=== PATIENT | male | born 1980 | race Caucasian/White ===

== ENCOUNTER 2018-04-02 12:16 | Emergency (ER) | payer MEDICAID ==
[~2018-04-02] VITALS: Ht 188 cm; Wt 78.0 kg
[~2018-04-02 12:16] MED LIST: GABA-532 PO; TRAM50TA2 PO
[2018-04-02] MEDS ORDERED: HYDR-565 PO (13:54)
[2018-04-02] MEDS ORDERED: CYCL-1 PO (13:54)
[2018-04-02] MEDS ORDERED: NAPR-56 PO (13:54)
[2018-04-02] MEDS ORDERED: ketorolac trometh inj. 60 MG/2 ML VIAL IM ONE (13:55)
[2018-04-02] MEDS ORDERED: cyclobenzaprine 10mg tablet PO ONE (13:55)
[2018-04-02] MEDS ORDERED: HYDROmorphone 2mg tablet PO ONE (13:55)
[2018-04-02 14:24] VITALS: BP 144/99
== END 2018-04-02 14:27 | disposition home or self-care (01) ==
LOC: ER 12:16
DX: S70.01XA Contusion of right hip, initial encounter (principal); M54.9 Dorsalgia, unspecified; G89.29 Other chronic pain; F12.90 Cannabis use, unspecified, uncomplicated; F15.90 Other stimulant use, unspecified, uncomplicated; Z56.0 Unemployment, unspecified; V00.131A Fall from skateboard, initial encounter; Y93.51 Activity, roller skating (inline) and skateboarding; Y92.89 Other specified places as the place of occurrence of the external cause; Y99.8 Other external cause status
CPT/HCPCS: 72100; 72170; 96372; 99284; J1885

== ENCOUNTER 2019-08-22 00:23 | Emergency (ER) | payer MEDICAID ==
[~2019-08-22] VITALS: Ht 182.9 cm; Wt 88.0 kg
[~2019-08-22 00:23] MED LIST changes: +CYCL-1 PO
[2019-08-22 00:41] VITALS: BP 136/98
[2019-08-22] MEDS ORDERED: ketorolac trometh inj. 60 MG/2 ML VIAL IM ONE (02:10)
== END 2019-08-22 02:28 | disposition home or self-care (01) ==
LOC: ER 00:24
DX: M54.5 Low back pain (principal); F15.10 Other stimulant abuse, uncomplicated; G89.29 Other chronic pain; F12.90 Cannabis use, unspecified, uncomplicated; Z56.0 Unemployment, unspecified; Z88.6 Allergy status to analgesic agent
CPT/HCPCS: 96372; 99283; J1885

== ENCOUNTER 2020-01-19 21:31 | Emergency (ER) | payer MEDICAID, OTHER ==
[~2020-01-19] VITALS: Ht 188 cm; Wt 70.5 kg
[2020-01-19 21:46] VITALS: BP 126/78
[2020-01-19] MEDS ORDERED: meclizine 12.5mg tablet PO ONE (22:15)
== END 2020-01-19 22:37 | disposition home or self-care (01) ==
LOC: ER 21:32
DX: H72.91 Unspecified perforation of tympanic membrane, right ear (principal); R42 Dizziness and giddiness; G89.29 Other chronic pain; F12.90 Cannabis use, unspecified, uncomplicated; F15.90 Other stimulant use, unspecified, uncomplicated; Z56.0 Unemployment, unspecified; Z88.6 Allergy status to analgesic agent
CPT/HCPCS: 99282; J8597

== ENCOUNTER 2020-03-03 19:33 | Emergency (ER) | payer MEDICAID ==
[~2020-03-03] VITALS: Ht 188 cm; Wt 72.7 kg
[2020-03-03 22:19] VITALS: BP 115/80
== END 2020-03-03 22:21 | disposition home or self-care (01) ==
LOC: ER 19:33
DX: S50.02XA Contusion of left elbow, initial encounter (principal); F10.929 Alcohol use, unspecified with intoxication, unspecified; G89.29 Other chronic pain; F17.200 Nicotine dependence, unspecified, uncomplicated; F12.90 Cannabis use, unspecified, uncomplicated; F15.90 Other stimulant use, unspecified, uncomplicated; Z56.0 Unemployment, unspecified; Z88.6 Allergy status to analgesic agent; Z79.899 Other long term (current) drug therapy; Y04.0XXA Assault by unarmed brawl or fight, initial encounter; Y93.89 Activity, other specified; Y92.89 Other specified places as the place of occurrence of the external cause; Y99.9 Unspecified external cause status; Y90.9 Presence of alcohol in blood, level not specified
CPT/HCPCS: 70450; 70486; 73080; 93005; 99285

== ENCOUNTER 2020-07-11 18:25 | Emergency (ER) | payer MEDICAID ==
[~2020-07-11] VITALS: Ht 188 cm; Wt 72.8 kg
[2020-07-11 18:29] VITALS: BP 101/70
[2020-07-11] MEDS ORDERED: PRED10TA23 PO (18:40)
[2020-07-11] MEDS ORDERED: TRAM50TA2 PO (18:40)
== END 2020-07-11 18:47 | disposition home or self-care (01) ==
LOC: ER 18:26
DX: H92.01 Otalgia, right ear (principal); R51 Headache; G89.29 Other chronic pain; F12.90 Cannabis use, unspecified, uncomplicated; F15.90 Other stimulant use, unspecified, uncomplicated; Z56.0 Unemployment, unspecified; Z88.8 Allergy status to other drugs, medicaments and biological substances; Z79.899 Other long term (current) drug therapy
CPT/HCPCS: 99283; 99284

== ENCOUNTER 2020-09-07 22:28 | Emergency (ER) | payer MEDICAID ==
[~2020-09-07] VITALS: Ht 188 cm; Wt 81.8 kg
--- NOTE | 2020-09-08 01:44 | NUR ---
GIVEN WARM BLANKETS, PT WITH STABLE VS. REMAINS IN AIRBORN PRECAUTIONS. NO TEST FOR COVID ORDERE.D
--- NOTE | 2020-09-08 02:42 | NUR ---
PT DC'D. D/T HOMELESSNESS, WITH TL PERMISSION WE ARE ALLOWING PT TO REST IN ER AT THIS TIME.
[2020-09-08 05:55] VITALS: BP 113/65
== END 2020-09-08 06:01 | disposition home or self-care (01) ==
LOC: ER 22:29
DX: T59.811A Toxic effect of smoke, accidental (unintentional), initial encounter (principal); R42 Dizziness and giddiness; F12.10 Cannabis abuse, uncomplicated; F15.10 Other stimulant abuse, uncomplicated; Z59.0 Homelessness; Z56.0 Unemployment, unspecified; Z88.6 Allergy status to analgesic agent; Y92.89 Other specified places as the place of occurrence of the external cause
CPT/HCPCS: 99283

== ENCOUNTER 2020-11-02 14:16 | Emergency (ER) | payer MEDICAID ==
[~2020-11-02] VITALS: Ht 182.9 cm; Wt 70.0 kg
[2020-11-02] MEDS ORDERED: HYDROcodone/acetaminophen 5mg/325mg tablet PO ONE (14:45)
[2020-11-02] MEDS ORDERED: cephalexin 250mg capsule PO ONE (14:45)
[2020-11-02] MEDS ORDERED: CEPH750C9 PO (15:06)
[2020-11-02 15:22] VITALS: BP 140/92
== END 2020-11-02 15:24 | disposition home or self-care (01) ==
LOC: ER 14:17
DX: L02.01 Cutaneous abscess of face (principal); R51.9 Headache, unspecified; G89.29 Other chronic pain; F12.90 Cannabis use, unspecified, uncomplicated; F15.90 Other stimulant use, unspecified, uncomplicated; Z72.89 Other problems related to lifestyle; Z59.0 Homelessness; Z56.0 Unemployment, unspecified; Z88.6 Allergy status to analgesic agent; Z79.2 Long term (current) use of antibiotics; Z79.899 Other long term (current) drug therapy
CPT/HCPCS: 10060; 99283

== ENCOUNTER 2022-02-11 17:15 | Emergency (ER) | payer MEDICAID ==
[~2022-02-11] VITALS: Ht 182.9 cm; Wt 90.0 kg
[~2022-02-11 17:15] MED LIST changes: +CEPH750C9 PO
--- NOTE | 2022-02-11 17:45 | NUR ---
Patient removed all clothing; dressed in gown and given warm blanket.
[2022-02-11 17:59] LABS: BASOPHILS % (AUTO) 0.3 % (0-1); EOSINOPHILS % (AUTO) 0.2 % (0-6); HEMATOCRIT 41.5 % (42.0-52.0); LYMPHOCYTES # (AUTO) 0.2 X10'3 (1.1-4.8); LYMPHOCYTES % (AUTO) 2.3 % (21-51); MEAN CORPUSCULAR HGB CONC 33.7 g/dL (33.0-36.5); MEAN CORPUSCULAR VOLUME 97.8 FL (78-98); MONOCYTES % (AUTO) 0.3 % (2-12); NEUTROPHILS # (AUTO) 7.4 X10'3 (1.8-7.7); NEUTROPHILS % (AUTO) 96.9 % (42-75); PLATELET COUNT 270 X10'3 (140-440); RED BLOOD COUNT 4.24 X10'6 (4.70-6.10); RED CELL DISTRIBUTION WIDTH 12.9 % (11.5-14.5); WHITE BLOOD COUNT 7.7 X10'3 (4.5-11.0)
[2022-02-11 18:19] LABS: ALANINE AMINOTRANSFERASE 301 U/L (12-78); ALBUMIN 3.1 G/DL (3.4-5.0); ALKALINE PHOSPHATASE 81 IU/L (46-116); ANION GAP 15 (8-16); ASPARTATE AMINO TRANSFERASE 483 U/L (10-37); BILIRUBIN,TOTAL 0.5 MG/DL (0.1-1.0); BLOOD UREA NITROGEN 20 MG/DL (7-18); BUN/CREATININE RATIO 15.6 (5.4-32.0); CALCIUM 7.8 MG/DL (8.5-10.1); CHLORIDE 107 MMOL/L (99-107); CREATININE 1.28 MG/DL (0.60-1.10); GLUCOSE 114 MG/DL (70-104); SODIUM 143 MMOL/L (135-145); TOTAL CARBON DIOXIDE 21.3 MMOL/L (24-32); TOTAL PROTEIN 6.3 G/DL (6.4-8.2); eGFR 62 ML/MIN
[2022-02-11] MEDS ORDERED: ondansetron 4mg rapidly disintigrating tab PO ONE (20:00)
[2022-02-11] MEDS ORDERED: famotidine 20mg tablet PO ONE (20:00)
--- NOTE | 2022-02-11 20:20 | NUR ---
Pt to CT
[2022-02-11 20:27] LABS: ACETAMINOPHEN < 2.0 UG/ML (10-30)
[2022-02-11] MEDS ORDERED: dicyclomine 10 MG capsule PO ONE (21:35)
[2022-02-11] MEDS ORDERED: bisacodyl 5mg tablet.DR PO ONE (21:35)
[2022-02-11 21:45] VITALS: BP 120/79
[2022-02-11] MEDS ORDERED: BISA-78 PO (21:56)
== END 2022-02-11 22:11 | disposition home or self-care (01) ==
LOC: ER 17:16
DX: K59.00 Constipation, unspecified (principal); R10.84 Generalized abdominal pain; G89.29 Other chronic pain; F12.90 Cannabis use, unspecified, uncomplicated; F15.90 Other stimulant use, unspecified, uncomplicated; Z56.0 Unemployment, unspecified; Z59.00 Homelessness unspecified; Z72.89 Other problems related to lifestyle; Z88.8 Allergy status to other drugs, medicaments and biological substances; Z79.2 Long term (current) use of antibiotics; Z79.899 Other long term (current) drug therapy
CPT/HCPCS: 36415; 74176; 80053; 80329; 85025; 99285

== ENCOUNTER 2022-04-24 11:08 | Emergency (ER) | payer MEDICAID ==
[~2022-04-24] VITALS: Ht 188 cm; Wt 66.2 kg
[~2022-04-24 11:08] MED LIST changes: +BISA-78 PO
[2022-04-24 11:17] VITALS: BP 114/70
[2022-04-24] MEDS ORDERED: AMOX-115 PO (11:54)
== END 2022-04-24 12:10 | disposition home or self-care (01) ==
LOC: ER 11:10
DX: H72.91 Unspecified perforation of tympanic membrane, right ear (principal); F12.10 Cannabis abuse, uncomplicated; F15.10 Other stimulant abuse, uncomplicated; G89.29 Other chronic pain; Z56.0 Unemployment, unspecified; Z59.00 Homelessness unspecified; Z88.6 Allergy status to analgesic agent; Z79.899 Other long term (current) drug therapy
CPT/HCPCS: 99283

== ENCOUNTER 2022-07-10 19:36 | Emergency (ER) | payer MEDICAID ==
[~2022-07-10] VITALS: Ht 188 cm; Wt 70.5 kg
[2022-07-10 19:39] VITALS: BP 123/96
[2022-07-10] MEDS ORDERED: TETanus/Pertussis (Acell)/Diphther VAC/PF (Tdap-Adult) 0.5ml syringe IMVAC ONE (21:10)
[2022-07-10] MEDS ORDERED: ketorolac trometh inj. 60 MG/2 ML VIAL IM ONE (21:35)
[2022-07-10] MEDS ORDERED: IBUP-1986 PO (21:58)
== END 2022-07-10 22:18 | disposition home or self-care (01) ==
LOC: ER 19:37
DX: S90.511A Abrasion, right ankle, initial encounter (principal); X58.XXXA Exposure to other specified factors, initial encounter; Y93.89 Activity, other specified; Y92.89 Other specified places as the place of occurrence of the external cause; Y99.8 Other external cause status
CPT/HCPCS: 73630; 90471; 90715; 96372; 99284; J1885; A6449